=== PATIENT | female | born 1935 | race Caucasian/White ===

== ENCOUNTER → 2020-02-25 13:06 | Outpatient (CLI) | payer MEDICARE ==
--- NOTE | 2020-02-27 09:31 | EC ---
PATIENT:CHRISTINA FERGUSON DATE OF SERVICE: 02/25/20 SEX: F MEDICAL RECORD: [id number] DATE OF : 33 LOCATION:[facility] AGE OF PATIENT: 84 ADMISSION DATE: 02/25/20 REFERRING PHYSICIAN: INTERPRETING PHYSICIAN: MAN REAL MD ECHOCARDIOGRAM REPORT ECHO CHARGES 4 ECHO COMPLETE Date: 02/25/20 CLINICAL DIAGNOSIS: HX OF HTN/CAD/AFIB ASSESS EF AND VALVES ECHOCARDIOGRAPHIC MEASUREMENTS (adult normal given) AC root (d.<3.7cm) 3.1 cm LV Septum d (<1.2 cm> 1.4 cm Valve Excursion 1.4 cm LV Septum (systole) 1.6 cm Left Atria (s.<4.0cm> 4.2 cm LVPW d(<1.2cm) 1.4 cm RV (d.<2.3cm) 4.0 cm LVPW (sytole) 1.8 cm LV diastole(<5.6CM) 4.2 cm MV E-F(>70mm/sec) cm LV systole 2.0 cm LVOT Diameter 1.6 cm MV exc.(>10mm) 1.5 cm Est.ejection fraction (50-75%) % DOPPLER: LVIT cm/sec A 62.0 cm/sec E 44.0 cm/sec LA cm/sec RVSP 40 mmHg LVOT 159 cm/sec AOP1/2T m/s Asc. Ao cm/sec RVOT 86 cm/sec RA cm/sec PA 137 cm/sec AV Gradient Peak 19.83mmHg AV Mean 11.42mmHg AV Area 1.3 cm MV Gradient Peak 2.55 mmHg MV Mean 1.18 mmHg MV Area cm COMMENTS: Interior Design Professional: 2 DEONTE DENNY Welding Tester: 3 Dr. Mena TAPE# PACS Pericardial Effusion N DATE OF SERVICE: Adequate 2D, color flow imaging, spectral Doppler, and M-Mode. LVH is present. LV internal dimension is normal. Wall motion is normal. EF is greater than or equal to 55%. Aortic valve is calcified with restriction of leaflet motion. Peak gradient of 20 mmHg putting this in the mild range. Left atrium is minimally dilated at 4.2 cm. Mitral valve shows no prolapse. Mild MR. Right-sided chambers are grossly normal. Mild TR. ECHOCARDIOGRAM REPORT [id number] CHRISTINA FERGUSON TRANSINT:[id number] Voice Confirmation ID: [id number] DOCUMENT ID: [id number] MAN REAL MD at 0931 CC: [id number] DICTATION DATE: 02/26/20 1302 [place] OPERATOR: 02/27/20 0025 DEP CLI 02/25/[address] [facility] [address] [id number]
== END | disposition home or self-care (01) ==
LOC: D.HCCECHO 13:06
PROVIDERS: ATTEND Internal Medicine Interventional Cardiology
DX: I10 Essential (primary) hypertension (principal)

== ENCOUNTER → 2021-03-02 10:25 | Outpatient (CLI) | payer MEDICARE ==
--- NOTE | 2021-03-03 14:32 | EC ---
PATIENT:CHRISTINA FERGUSON DATE OF SERVICE: 03/02/21 SEX: F MEDICAL RECORD: [id number] DATE OF : [birth year] LOCATION:D.[facility] AGE OF PATIENT: 85 ADMISSION DATE: 03/02/21 REFERRING PHYSICIAN: INTERPRETING PHYSICIAN: MAN REAL MD ECHOCARDIOGRAM REPORT ECHO CHARGES 4 ECHO COMPLETE Date: 03/02/21 CLINICAL DIAGNOSIS: ASSESS AORTIC STENOSIS/MITRAL AND TRICUSPID REGURG HX OF HTN/AFIB ECHOCARDIOGRAPHIC MEASUREMENTS (adult normal given) AC root (d.<3.7cm) 2.9 cm LV Septum d (<1.2 cm> 1.3 cm Valve Excursion 1.5 cm LV Septum (systole) 1.7 cm Left Atria (s.<4.0cm> 3.8 cm LVPW d(<1.2cm) 1.4 cm RV (d.<2.3cm) 3.5 cm LVPW (sytole) 1.7 cm LV diastole(<5.6CM) 4.4 cm MV E-F(>70mm/sec) cm LV systole 1.9 cm LVOT Diameter 1.7 cm MV exc.(>10mm) 1.5 cm Est.ejection fraction (50-75%) % DOPPLER: LVIT cm/sec A 76.0 cm/sec E 53.0 cm/sec LA cm/sec RVSP 36 mmHg LVOT 114 cm/sec AOP1/2T m/s Asc. Ao 184 cm/sec RVOT 78 cm/sec RA cm/sec PA 118 cm/sec AV Gradient Peak 13.53mmHg AV Mean 7.43 mmHg AV Area 1.3 cm MV Gradient Peak 3.73 mmHg MV Mean 1.44 mmHg MV Area cm COMMENTS: Bar Machine Operator Multiple Spindle: 2 DEONTE DENNY Insurance Loss Adjuster: 3 Dr. Mena TAPE# PACS Pericardial Effusion N DATE OF SERVICE: Adequate 2D, color flow imaging, spectral Doppler, and M-mode. FINDINGS: Mild LVH. LV internal dimensions are normal. Wall motion is normal. EF is greater than or equal to 55%. Aortic valve is calcified, but with minimal restriction in the leaflet motion. Peak gradient of 13 mmHg putting this in mild range. Mild AI is present as well. Left atrium is normal at 3.8 cm. Mitral valve shows no prolapse. Mild MR. Right-sided chambers are ECHOCARDIOGRAM REPORT [id number] CHRISTINA FERGUSON grossly normal. Moderate TR. TRANSINT:[id number] Voice Confirmation ID: [id number] DOCUMENT ID: [id number] MAN REAL MD at 1432 CC: [id number] DICTATION DATE: 03/02/21 1635 CONTINUOUS LINTER DRIER OPERATOR: 03/02/21 2242 DEP CLI 03/02/21 [id number] [place] [address]
== END | disposition home or self-care (01) ==
LOC: D.HCCECHO 10:25
PROVIDERS: ATTEND Internal Medicine Interventional Cardiology
DX: I10 Essential (primary) hypertension (principal)